=== PATIENT | male | born 1965 | race Caucasian/White ===

== ENCOUNTER 2018-09-28 09:21 | Emergency (ER) | payer BC ==
[2018-09-28] MEDS ORDERED: CLINDAMYCIN HCL 150 MG CAP ONE (10:45)
[2018-09-28] MEDS ORDERED: IBUPROFEN 400 MG TAB ONE (10:45)
--- NOTE | 2018-09-28 11:09 | RAD REPORT ---
EXAM DESCRIPTION: RAD - Hand Left 3 View - 09/28/2018 10:51 am CLINICAL HISTORY: Left hand and thumb nontraumatic pain and swelling, pain and swelling primarily fi rst metacarpal region COMPARISON: None. FINDINGS: No acute fracture changes seen. No dislocation or periosteal reaction. Minimal joint space narrowing at the trapezium first metacarpal articulation. Technologist notation indicates pain is pr imarily around a midshaft region of the first metacarpal. There is no bone or soft tissue finding at this location. There are 5 millimeter and 3 millimeter densities near the scaphoid trapezium joint space. An acute b one avulsion is not suspected. Mineralization from old trauma is favored. This is probably not acutel y clinically significant and is probably a few cm from the patient's site of pain. IMPRESSION: No acute fracture seen. Patient localizes pain and swelling around the first metacarpal region with no acute bone or soft tissue finding seen. Calcification or soft tissue mineralization near the scaphoid trapezium joint space is probably the s equela of old trauma.
--- NOTE | 2018-09-28 11:12 | ER ---
Nurse's Notes [facility] Name: Romeo Hood Age: 52 yrs Sex: Male : 1965 Arrival Date: 09/28/2018 Time: 09:25 Bed 17 Private MD: None, None Diagnosis: Cellulitis of left upper limb Presentation: 09/28 09:55 Presenting complaint: Patient states: "My left hand is swollen and painful. I'm not jl7 sure if its from playing the [email or web address] tennis game or carrying the BBQ pit." Left thumb down to wrist appear swollen, red and warm to touch. Transition of care: patient was not received from another setting of care. Onset of symptoms was September 26, 2018. Risk Assessment: Do you want to hurt yourself or someone else? Patient reports no desire to harm self or others. Initial Sepsis Screen: Does the patient meet any 2 criteria? No. Patient's initial sepsis screen is negative. Does the patient have a suspected source of infection? No. Patient's initial sepsis screen is negative. Care prior to arrival: None. 09:55 Method Of Arrival: Ambulatory 7 09:55 Acuity: RALPH 4 jl7 Triage Assessment: 09:59 General: Appears in no apparent distress. uncomfortable, Behavior is calm, cooperative, jl7 appropriate for age. Pain: Complains of pain in left hand Pain currently is 8 out of 10 on a pain scale. Quality of pain is described as throbbing, Pain began 2-3 days ago. Is continuous. Neuro: Level of Consciousness is awake, alert, obeys commands. Cardiovascular: Patient's skin is warm and dry. Respiratory: Airway is patent Respiratory effort is even, unlabored, Respiratory pattern is regular, symmetrical. Musculoskeletal: Swelling present in lateral aspect of left hand. Historical: - Allergies: 09:59 No Known Allergies; jl7 - Home Meds: 09:59 None [Active]; jl7 - PMHx: 09:59 High Cholesterol; jl7 - PSHx: 09:59 Hernia repair; jl7 - Immunization history:: Adult Immunizations not up to date. - Social history:: Smoking status: Patient uses tobacco products, smokes one-half pack cigarettes per day, Patient uses alcohol, claims drinking about a 6 pack/day. - Ebola Screening: : No symptoms or risks identified at this time. Vital Signs: 09:59 BP 160 / 102; Pulse 84; Resp 16 S; Temp 99.2(O); Pulse Ox 99% on R/A; Weight 70.31 kg; jl7 Height 5 ft. 6 in. (167.64 cm) (R); Pain 8/10; 09:59 Body Mass Index 25.02 (70.31 kg, 167.64 cm) jl7 ED Course: 09:25 Patient arrived in ED. mr 09:26 None, None is Private Physician. mr 09:49 Natalio Santamaria, RN is Primary Nurse. bp 09:59 Triage completed. jl7 09:59 Arm band placed on right wrist. jl7 10:03 Dilia Golden F[facility]C [facility]. kb 10:03 Christiano Esquivel MD is Attending Physician. kb 10:52 XRAY Hand LEFT 3 View In Process Unspecified. EDMS Administered Medications: 10:35 Drug: Clindamycin 300 mg Route: PO; bp 10:35 Drug: Ibuprofen 800 mg Route: PO; bp Outcome: 11:12 Discharge ordered by . kb 11:26 Patient left the ED. iw Signatures: Dispatcher [employer] EDMS Dilia Golden FNP-C FNP-Ckb RiveraSarah mr Natasha Ramirez, RN KVNG iw Dash Dasilva RN RN jl7 Natalio Santamaria, RN RN bp
--- NOTE | 2018-09-28 11:13 | EDPHYS ---
Physician Documentation [facility] Name: Romeo Hood Age: 52 yrs Sex: Male : 1965 Arrival Date: 09/28/2018 Time: 09:25 Bed 17 Private MD: None, None ED Physician Christiano Esquivel HPI: 09/28 11:06 This 52 yrs old Male presents to ER via Ambulatory with complaints of Hand kb Swelling. 11:06 The patient or guardian reports pain, swelling, tenderness. The complaints affect the kb lateral aspect of left hand. Context: The problem was sustained at home, resulted from a repetitive motion, playing tennis of [employer]. Onset: The symptoms/episode began/occurred 2 day(s) ago. Modifying factors: The symptoms are alleviated by nothing, the symptoms are aggravated by nothing. Associated signs and symptoms: The patient has no apparent associated signs or symptoms, Pertinent negatives: cyanosis distally, decreased sensation distally, fever, nausea, numbness distally, tingling distally, vomiting. Severity of symptoms: At their worst the symptoms were moderate, in the emergency department the symptoms are unchanged. The patient has not experienced similar symptoms in the past. The patient has not recently seen a physician. Pt states he played tennis on the [employer] a lot 3 days ago, had some soreness to left hand that radiates up lateral aspect of left wrist the next day. Reports he noticed swelling Wednesday night and it has just progressively gotten worse. States he made an appt with Dr Salmon for tomorrow, but wanted to get it looked at now because of the swelling. Pt has full ROM, neurovascularly intact. Educated on need to return for decreased ROM, tingling/numbness in fingers/hand, increased swelling and redness. . Historical: - Allergies: 09:59 No Known Allergies; jl7 - Home Meds: 09:59 None [Active]; jl7 - PMHx: 09:59 High Cholesterol; jl7 - PSHx: 09:59 Hernia repair; jl7 - Immunization history:: Adult Immunizations not up to date. - Social history:: Smoking status: Patient uses tobacco products, smokes one-half pack cigarettes per day, Patient uses alcohol, claims drinking about a 6 pack/day. - Ebola Screening: : No symptoms or risks identified at this time. ROS: 11:02 Constitutional: Negative for fever, chills, and weight loss, Cardiovascular: Negative kb for chest pain, palpitations, and edema, Respiratory: Negative for shortness of breath, cough, wheezing, and pleuritic chest pain, Abdomen/GI: Negative for abdominal pain, nausea, vomiting, diarrhea, and constipation, Back: Negative for injury and pain, Neuro: Negative for headache, weakness, numbness, tingling, and seizure. 11:02 MS/extremity: Positive for erythema, pain, swelling, tenderness, warmth, of the lateral aspect of left hand. Exam: 11:05 Constitutional: This is a well developed, well nourished patient who is awake, alert, kb and in no acute distress. Head/Face: Normocephalic, atraumatic. Chest/axilla: Normal chest wall appearance and motion. Nontender with no deformity. No lesions are appreciated. Cardiovascular: Regular rate and rhythm with a normal S1 and S2. No gallops, murmurs, or rubs. Normal PMI, no JVD. No pulse deficits. Respiratory: Lungs have equal breath sounds bilaterally, clear to auscultation and percussion. No rales, rhonchi or wheezes noted. No increased work of breathing, no retractions or nasal flaring. Abdomen/GI: Soft, non-tender, with normal bowel sounds. No distension or tympany. No guarding or rebound. No evidence of tenderness throughout. MS/ Extremity: Pulses equal, no cyanosis. Neurovascular intact. Full, normal range of motion. Neuro: Awake and alert, GCS 15, oriented to person, place, time, and situation. Cranial nerves II-XII grossly intact. Motor strength 5/5 in all extremities. Sensory grossly intact. Cerebellar exam normal. Normal gait. 11:05 Skin: cellulitis, that is mild, on the lateral aspect of left hand. Vital Signs: 09:59 BP 160 / 102; Pulse 84; Resp 16 S; Temp 99.2(O); Pulse Ox 99% on R/A; Weight 70.31 kg; jl7 Height 5 ft. 6 in. (167.64 cm) (R); Pain 8/10; 09:59 Body Mass Index 25.02 (70.31 kg, 167.64 cm) jl7 MDM: 10:04 Patient medically screened. kb 11:05 Data reviewed: vital signs, nurses notes. Data interpreted: Pulse oximetry: on room air kb is 99 %. Interpretation: normal. Counseling: I had a detailed discussion with the patient and/or guardian regarding: the historical points, exam findings, and any diagnostic results supporting the discharge/admit diagnosis, radiology results, the need for outpatient follow up, a family practitioner, to return to the emergency department if symptoms worsen or persist or if there are any questions or concerns that arise at home. 09/28 10:03 Order name: XRAY Hand LEFT 3 View; Complete Time: 11:11 bp Administered Medications: 10:35 Drug: Clindamycin 300 mg Route: PO; bp 10:35 Drug: Ibuprofen 800 mg Route: PO; bp Disposition: 16:15 Co-signature as Attending Physician, Christiano Esquivel MD I agree with the assessment and kdr plan of care. Disposition: 09/28/18 11:12 Discharged to Home. Impression: Cellulitis of left upper limb. - Condition is Stable. - Discharge Instructions: Cellulitis, Adult, [id number]. - Prescriptions for Clindamycin HCl 300 mg Oral Capsule - take 1 capsule by ORAL route every 6 hours for 10 days; 40 capsule. Ibuprofen 800 mg Oral Tablet - take 1 tablet by ORAL route every 8 hours As needed take with food; 30 tablet. Tramadol 50 mg Oral Tablet - take 1 tablet by ORAL route every 8 hours as needed; 12 tablet. - Medication Reconciliation Form, Thank You Letter, Antibiotic Education, Prescription Opioid Use, Work release form form. - Follow up: Private Physician; When: 2 - 3 days; Reason: Recheck today's complaints, Continuance of care, Re-evaluation by your physician. Follow up: Emergency Department; When: As needed; Reason: Worsening of condition. Signatures: Dispatcher [employer] EDGA Dilia Golden, HR OPERATIONS ADVISOR-C HR OPERATIONS ADVISOR-Christiano Michel MD MD kdr Natasha Ramirez, RN RN iw Dash Dasilva RN RN jlNatalio Collins RN RN bp Corrections: (The following items were deleted from the chart) 11:12 09/28/2018 11:12 Discharged to Home. Impression: Cellulitis of left upper limb. iw Condition is Stable. Forms are Medication Reconciliation Form, Thank You Letter, Antibiotic Education, Prescription Opioid Use. Follow up: Private Physician; When: 2 - 3 days; Reason: Recheck today's complaints, Continuance of care, Re-evaluation by your physician. Follow up: Emergency Department; When: As needed; Reason: Worsening of condition. kb
== END 2018-09-28 11:26 | disposition home or self-care (01) ==
LOC: ER 09:21
DX: L03.114 Cellulitis of left upper limb (principal); F17.210 Nicotine dependence, cigarettes, uncomplicated
CPT/HCPCS: 99283

== ENCOUNTER 2019-01-12 08:48 | Emergency (ER) | payer BC ==
[2019-01-12 10:00] LABS: Absolute Lymphocytes (CBC) 1.9 K/uL (0.7-4.9); Absolute Monocytes 0.6 K/uL (0.1-1.3); Absolute Neutrophil 5.3 K/uL (1.8-8.0); Basophils % 0.7 % (0-1.3); Hematocrit 42.7 % (39.6-49.0); Lymphocytes % 24.5 % (15.3-44.8); Monocytes % 7.1 % (3.3-12.3); RBC Red Blood Cell Count 4.57 M/uL (4.33-5.43)
[2019-01-12 10:12] LABS: Potassium 4.1 mmol/L (3.5-5.1)
--- NOTE | 2019-01-12 10:53 | RAD REPORT ---
EXAM DESCRIPTION: CTFacial Bones W Con Mpr01/12/2019 10:39 am CLINICAL HISTORY: Facial pain and swelling COMPARISON: None. TECHNIQUE: Computed axial tomography of the face obtained with coronal and sagittal reconstruction. 50 cc Isovue-[address] scans are performed using dose optimization technique as appropriate and may include automated exposure control or mA/KV adjustment according to patient size. FINDINGS: Edema is present within the subcutaneous tissues of the lower forehead/upper nose. An absc ess is not seen. The globes are normal size and density. Intraorbital fat is clear. The parapharyngeal fat is clear. Parotid and submandibular glands do not demonstrate a significant abnormality. Mild mucoperiosteal thickening involves the sinuses. Fluid within the sinuses is not noted. IMPRESSION: Edema within the subcutaneous tissues of the lower forehead and upper nose may indicate a cellulitis. An abscess is not seen .
--- NOTE | 2019-01-12 10:59 | EDPHYS ---
Physician Documentation [facility] Name: Romeo Hood Age: 53 yrs Sex: Male : 1965 Arrival Date: 01/12/2019 Time: 08:53 Bed 6 Private MD: ED Physician Fernando Salguero HPI: 01/12 09:49 This 53 yrs old Male presents to ER via Ambulatory with complaints of Sinus rn Pain. 09:49 The patient or guardian reports. rn 09:49 The patient presents with swelling. Onset: The symptoms/episode began/occurred. rn 09:49 Onset: The symptoms/episode began/occurred yesterday. Modifying factors: The symptoms rn are alleviated by nothing. the symptoms are aggravated by nothing. Severity of symptoms: At their worst the symptoms were mild in the emergency department the symptoms are unchanged. The patient has not experienced similar symptoms in the past. Reports noticed nose swelling over bridge since yesterday, no trauma, no fever, no cough, reports swelling worse this AM, no vision changes.. Historical: - Allergies: 09:05 Clindamycin; hb - Home Meds: 09:05 None [Active]; hb - PMHx: 09:05 High Cholesterol; hb - PSHx: 09:05 Hernia repair; hb - Immunization history:: Adult Immunizations up to date. - Social history:: Smoking status: Patient uses tobacco products, smokes one-half pack cigarettes per day. - Ebola Screening: : No symptoms or risks identified at this time. - Family history:: not pertinent. - Hospitalizations: : No recent hospitalization is reported. ROS: 09:49 Constitutional: Negative for fever, chills, and weight loss, Eyes: Negative for injury, rn pain, redness, and discharge, ENT: Negative for injury, + swelling at bridge of nose Skin: Negative for injury, rash, and discoloration, Neuro: Negative for headache, weakness, numbness, tingling, and seizure. Exam: 09:49 Constitutional: This is a well developed, well nourished patient who is awake, alert, rn and in no acute distress. Head/Face: Normocephalic, atraumatic. ENT: NO oral swelling, + mild swelling of bilateral turbinates, + mild swelling with tenderness along nasal bridge. No erythema or fluctuance. No pain with ocular movement. Skin: Warm, dry with normal turgor. Normal color with no rashes, no lesions, and no evidence of cellulitis. Vital Signs: 09:04 BP 141 / 104; Pulse 87; Resp 16; Temp 98.4; Pulse Ox 100% on R/A; Pain 3/10; hb 09:57 BP 115 / 86; Pulse 80; Resp 16; Pulse Ox 100% on R/A; Pain 3/10; iw MDM: 09:01 Patient medically screened. rn 10:55 Differential diagnosis: sinusitis, cellulitis. Data reviewed: vital signs, nurses rn notes, lab test result(s), radiologic studies, CT scan, and as a result, I will discharge patient. Counseling: I had a detailed discussion with the patient and/or guardian regarding: the historical points, exam findings, and any diagnostic results supporting the discharge/admit diagnosis, lab results, radiology results, the need for outpatient follow up, to return to the emergency department if symptoms worsen or persist or if there are any questions or concerns that arise at home. Special discussion: I discussed with the patient/guardian in detail that at this point there is no indication for admission to the hospital. It is understood, however, that if the symptoms persist or worsen the patient needs to return immediately for re-evaluation. 01/12 09:17 Order name: CBC with Diff; Complete Time: 10:23 rn 01/12 09:17 Order name: Basic Metabolic Panel; Complete Time: 10:23 rn 01/12 09:17 Order name: CT Facial Bones W/ Con \T\ Mpr rn 01/12 09:17 Order name: IV Start; Complete Time: 09:44 rn Administered Medications: No medications were administered Disposition: 01/12/19 10:58 Discharged to Home. Impression: Facial Cellulitis. - Condition is Stable. - Discharge Instructions: Cellulitis, Adult. - Prescriptions for Bactrim DS 800- 160 mg Oral Tablet - take 1 tablet by ORAL route every 12 hours for 10 days; 20 tablet. - Medication Reconciliation Form, Thank You Letter, Antibiotic Education, Prescription Opioid Use form. - Follow up: Private Physician; When: As needed; Reason: Recheck today's complaints, Re-evaluation by your physician. - Problem is new. - Symptoms have improved. Signatures: Dispatcher [employer] EDMS James, Natasha, RN Fernando Torres MD MD rn Baxter, Heather, RN RN Corrections: (The following items were deleted from the chart) 11:12 10:58 01/12/2019 10:58 Discharged to Home. Impression: Facial Cellulitis. Condition is iw Stable. Forms are Medication Reconciliation Form, Thank You Letter, Antibiotic Education, Prescription Opioid Use. Follow up: Private Physician; When: As needed; Reason: Recheck today's complaints, Re-evaluation by your physician. Problem is new. Symptoms have improved. rn
--- NOTE | 2019-01-12 10:59 | ER ---
Nurse's Notes [facility] Name: Romeo Hood Age: 53 yrs Sex: Male : 1965 Arrival Date: 01/12/2019 Time: 08:53 Bed 6 Private MD: Diagnosis: Facial Cellulitis Presentation: 01/12 09:05 Presenting complaint: Facial swelling x 2 days. Denies injury/fever. Transition of hb care: patient was not received from another setting of care. Onset of symptoms was January 11, 2019. Risk Assessment: Do you want to hurt yourself or someone else? Patient reports no desire to harm self or others. Care prior to arrival: None. 09:05 Method Of Arrival: Ambulatory hb 09:05 Acuity: RALPH 3 hb 09:15 Initial Sepsis Screen: Does the patient meet any 2 criteria? No. Patient's initial iw sepsis screen is negative. Does the patient have a suspected source of infection? No. Patient's initial sepsis screen is negative. Triage Assessment: 11:10 Pain: Pain currently is 3 out of 10 on a pain scale. Pain began 2-3 days ago. Also iw complains of no other associated symptoms. Historical: - Allergies: 09:05 Clindamycin; hb - Home Meds: 09:05 None [Active]; hb - PMHx: 09:05 High Cholesterol; hb - PSHx: 09:05 Hernia repair; hb - Immunization history:: Adult Immunizations up to date. - Social history:: Smoking status: Patient uses tobacco products, smokes one-half pack cigarettes per day. - Ebola Screening: : No symptoms or risks identified at this time. - Family history:: not pertinent. - Hospitalizations: : No recent hospitalization is reported. Screenin:54 Abuse screen: Denies threats or abuse. Denies injuries from another. Nutritional iw screening: No deficits noted. Tuberculosis screening: No symptoms or risk factors identified. Fall Risk None identified. Assessment: 09:53 General: Appears in no apparent distress. Behavior is calm, cooperative. Pain: iw Complains of pain in head. Neuro: Level of Consciousness is awake, alert, obeys commands, Moves all extremities. Cardiovascular: Patient's skin is warm and dry. Respiratory: Respiratory effort is even, unlabored, Respiratory pattern is regular, symmetrical. Derm: Skin is intact, is healthy with good turgor. Musculoskeletal: Range of motion: intact in all extremities. Vital Signs: 09:04 BP 141 / 104; Pulse 87; Resp 16; Temp 98.4; Pulse Ox 100% on R/A; Pain 3/10; hb 09:57 BP 115 / 86; Pulse 80; Resp 16; Pulse Ox 100% on R/A; Pain 3/10; iw ED Course: 08:53 Patient arrived in ED. tw3 09:01 Fernando Salguero MD is Attending Physician. rn 09:05 Arm band placed on. hb 09:06 Triage completed. hb 09:10 Patient has correct armband on for positive identification. iw 09:32 Natasha Ramirez RN is Primary Nurse. iw 09:54 Initial lab(s) drawn, by ED staff, sent to lab. Inserted saline lock: 20 gauge in right iw antecubital area, using aseptic technique. Blood collected. 09:59 Radiology exam delayed due to lab results not completed at this time. (BUN/Creatinine). vr 10:39 CT Facial Bones W/ Con \T\ Mpr In Process Unspecified. EDMS 10:44 CT completed. Patient tolerated procedure well. Patient moved back from CT. vr 11:09 No provider procedures requiring assistance completed. IV discontinued, intact, iw bleeding controlled, No redness/swelling at site. Pressure dressing applied. Administered Medications: No medications were administered Outcome: 10:58 Discharge ordered by . rn 11:09 Discharged to home ambulatory. iw 11:09 Condition: good 11:09 Discharge instructions given to patient, Instructed on discharge instructions, follow up and referral plans. medication usage, Demonstrated understanding of instructions, follow-up care, medications, Prescriptions given X 1. 11:12 Patient left the ED. iw Signatures: Dispatcher [employer] EDMS Natasha Ramirez, KVNG CALDERON iw Fernando Salguero MD MD rn Davis, Victoria vr Su Lopez RN RN hb Wade, Tia tw3
== END 2019-01-12 11:12 | disposition home or self-care (01) ==
LOC: ER 08:48
DX: L03.211 Cellulitis of face (principal); E78.00 Pure hypercholesterolemia, unspecified; Z88.1 Allergy status to other antibiotic agents; F17.210 Nicotine dependence, cigarettes, uncomplicated
CPT/HCPCS: 36415; 70487; 76377; 80048; 85025; 99284; Q9967

== ENCOUNTER 2019-08-02 12:08 | Emergency (ER) | payer BC ==
[2019-08-02] MEDS ORDERED: LIDOCAINE 1% MPF 5 ML VIAL ONE (13:19)
[2019-08-02] MEDS ORDERED: TETANUS & DIPHTHERIA TOX,ADULT 0.5 ML VIAL ONE (13:20)
--- NOTE | 2019-08-02 13:38 | RAD REPORT ---
EXAM DESCRIPTION: RAD - Hand Right 3 View - 08/02/2019 1:29 pm CLINICAL HISTORY: PAIN COMPARISON: No comparisons FINDINGS: Soft tissue swelling affects the first finger. No fracture or dislocation seen.
--- NOTE | 2019-08-02 14:02 | EDPHYS ---
Physician Documentation [facility] Name: Romeo Hood Age: 53 yrs Sex: Male : 1965 Arrival Date: 08/02/2019 Time: 12:33 Bed 10 Private MD: ED Physician Delano Stacy HPI: 08/02 14:02 This 53 yrs old Male presents to ER via Ambulatory with complaints of Thumb jr8 Injury. 14:02 Onset: The symptoms/episode began/occurred just prior to arrival. jr8 14:02 The patient has a laceration occurred at work, and there are no complicating factors. jr8 The laceration(s) is(are) located on the palmar aspect of proximal phalanx of right thumb. Pt reports accidentally hitting hand with hammer while working on car. Historical: - Allergies: 12:35 Clindamycin; aa5 - PMHx: 12:35 High Cholesterol; aa5 - PSHx: 12:35 Hernia repair; aa5 - Immunization history:: Last tetanus immunization: unknown. - Social history:: Smoking status: Patient uses tobacco products, smokes one-half pack cigarettes per day. - Ebola Screening: : No symptoms or risks identified at this time. ROS: 14:07 Constitutional: Negative for fever, chills, and weight loss, Cardiovascular: Negative jr8 for chest pain, palpitations, and edema, Respiratory: Negative for shortness of breath, cough, wheezing, and pleuritic chest pain, Abdomen/GI: Negative for abdominal pain, nausea, vomiting, diarrhea, and constipation, Back: Negative for injury and pain, MS/Extremity: Negative for injury and deformity. 14:07 Skin: Positive for laceration(s), of the palmar aspect of proximal phalanx of right thumb. Exam: 14:05 Head/Face: Normocephalic, atraumatic. Eyes: Pupils equal round and reactive to light, jr8 extra-ocular motions intact. Lids and lashes normal. Conjunctiva and sclera are non-icteric and not injected. Cornea within normal limits. Periorbital areas with no swelling, redness, or edema. ENT: Nares patent. No nasal discharge, no septal abnormalities noted. Tympanic membranes are normal and external auditory canals are clear. Oropharynx with no redness, swelling, or masses, exudates, or evidence of obstruction, uvula midline. Mucous membranes moist. Neck: Trachea midline, no thyromegaly or masses palpated, and no cervical lymphadenopathy. Supple, full range of motion without nuchal rigidity, or vertebral point tenderness. No Meningismus. Chest/axilla: Normal chest wall appearance and motion. Nontender with no deformity. No lesions are appreciated. Cardiovascular: Regular rate and rhythm with a normal S1 and S2. No gallops, murmurs, or rubs. Normal PMI, no JVD. No pulse deficits. Respiratory: Lungs have equal breath sounds bilaterally, clear to auscultation and percussion. No rales, rhonchi or wheezes noted. No increased work of breathing, no retractions or nasal flaring. Abdomen/GI: Soft, non-tender, with normal bowel sounds. No distension or tympany. No guarding or rebound. No evidence of tenderness throughout. Back: No spinal tenderness. No costovertebral tenderness. Full range of motion. MS/ Extremity: Pulses equal, no cyanosis. Neurovascular intact. Full, normal range of motion. Neuro: Awake and alert, GCS 15, oriented to person, place, time, and situation. Cranial nerves II-XII grossly intact. Motor strength 5/5 in all extremities. Sensory grossly intact. Cerebellar exam normal. Normal gait. 14:05 Skin: injury, laceration(s), the wound is approximately 2 cm(s), with a depth of .5 cm(s), of the palmar aspect of proximal phalanx of right thumb. Vital Signs: 12:36 BP 140 / 85; Pulse 78; Resp 16 S; Temp 98.1(TE); Pulse Ox 100% on R/A; Weight 70.31 kg aa5 (R); Height 5 ft. 6 in. (167.64 cm) (R); Pain 4/10; 12:36 Body Mass Index 25.02 (70.31 kg, 167.64 cm) aa5 Laceration: 13:59 Wound Repair of 2cm ( 0.8in ) subcutaneous laceration to palmar aspect of proximal jr8 phalanx of right thumb. Distal neuro/vascular/tendon intact. Anesthesia: Digital block administered with 2 mls of 1% lidocaine. Wound prep: Moderate cleansing, Wound irrigation. Skin closed with 4 5-0 Prolene using simple sutures and sterile technique. MDM: 12:49 Patient medically screened. jr8 13:59 Data reviewed: vital signs, nurses notes, radiologic studies, and as a result, I will jr8 discharge patient. Counseling: I had a detailed discussion with the patient and/or guardian regarding: the historical points, exam findings, and any diagnostic results supporting the discharge/admit diagnosis. 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 Exp: aa5 02/14/2021. Lot #: [id number]. } Route: IM; Site: right deltoid; 13:50 Follow up: Response: No adverse reaction aa5 13:50 Drug: Lidocaine (1 %) 5 ml {Note: administered to right thumb by PA.} Volume: 5 ml; aa5 Route: Infiltration; 14:08 Follow up: Response: No adverse reaction aa5 Disposition: 08/03 07:25 Co-signature as Attending Physician, Delano Stacy MD I agree with the assessment and brittany plan of care. Disposition: 08/02/19 14:01 Discharged to Home. Impression: Laceration with foreign body of finger without damage to nail. - Condition is Fair. - Discharge Instructions: Laceration Care, Adult, Sutured Wound Care. - Medication Reconciliation Form, Thank You Letter form. - Follow up: Private Physician; When: 2 - 3 days; Reason: Recheck today's complaints, Re-evaluation by your physician. - Problem is new. - Symptoms have improved. - Notes: Have stictches removed in seven to ten days. Watch for signs of infection. Signatures: Dispatcher [employer] Delano Moraes MD MD cha Calderon, Audri, RN RN aa5 Jakob Hernandez PA PA jr8 Corrections: (The following items were deleted from the chart) 08/02 14:05 14:02 The laceration(s) is(are) located on the palmar aspect of proximal phalanx of jr8 right thumb, jr8 14:05 14:02 Pt reports accidental . jr8 jr8 14:11 14:01 08/02/2019 14:01 Discharged to Home. Impression: Laceration with foreign body of aa5 finger without damage to nail. Condition is Fair. Forms are Medication Reconciliation Form, Thank You Letter, Antibiotic Education, Prescription Opioid Use. Follow up: Private Physician; When: 2 - 3 days; Reason: Recheck today's complaints, Re-evaluation by your physician. Problem is new. Symptoms have improved. jr8
--- NOTE | 2019-08-02 14:02 | ER ---
Nurse's Notes [facility] Name: Romeo Hood Age: 53 yrs Sex: Male : 1965 Arrival Date: 08/02/2019 Time: 12:33 Bed 10 Private MD: Diagnosis: Laceration with foreign body of finger without damage to nail Presentation: 08/02 12:33 Presenting complaint: Patient states: "I hit my hand with a hammer about 45 minutes ago aa5 and it busted my right thumb open". 12:33 Transition of care: patient was not received from another setting of care. Onset of aa5 symptoms was July 2019. Risk Assessment: Do you want to hurt yourself or someone else? Patient reports no desire to harm self or others. Initial Sepsis Screen: Does the patient meet any 2 criteria? No. Patient's initial sepsis screen is negative. Does the patient have a suspected source of infection? No. Patient's initial sepsis screen is negative. Care prior to arrival: None. 12:33 Acuity: RALPH 4 aa5 12:33 Method Of Arrival: Ambulatory aa5 Historical: - Allergies: 12:35 Clindamycin; aa5 - PMHx: 12:35 High Cholesterol; aa5 - PSHx: 12:35 Hernia repair; aa5 - Immunization history:: Last tetanus immunization: unknown. - Social history:: Smoking status: Patient uses tobacco products, smokes one-half pack cigarettes per day. - Ebola Screening: : No symptoms or risks identified at this time. Screenin:35 Abuse screen: Denies threats or abuse. Nutritional screening: No deficits noted. aa5 Tuberculosis screening: No symptoms or risk factors identified. Fall Risk None identified. Assessment: 12:36 General: Appears comfortable, Behavior is calm, cooperative. Pain: Complains of pain in aa5 right thumb Pain does not radiate. Quality of pain is described as aching, throbbing. Neuro: Level of Consciousness is awake, alert, obeys commands, Oriented to person, place, time, situation. Cardiovascular: Capillary refill < 3 seconds is brisk in bilateral fingers Patient's skin is warm and dry. Respiratory: Airway is patent Respiratory effort is even, unlabored, Respiratory pattern is regular, symmetrical. GI: No signs and/or symptoms were reported involving the gastrointestinal system. : No signs and/or symptoms were reported regarding the genitourinary system. EENT: No signs and/or symptoms were reported regarding the EENT system. Derm: Skin is pink, warm \\T\\ dry. Musculoskeletal: Range of motion: intact in all extremities. Injury Description: Laceration sustained to right thumb is Approximately 1 in long. No active bleeding noted at this time. 13:22 Reassessment: Patient is alert, oriented x 3, equal unlabored respirations, skin aa5 warm/dry/pink. X-ray completed by x-ray tech . 14:08 Reassessment: Patient is alert, oriented x 3, equal unlabored respirations, skin aa5 warm/dry/pink. Patient states feeling better. Vital Signs: 12:36 BP 140 / 85; Pulse 78; Resp 16 S; Temp 98.1(TE); Pulse Ox 100% on R/A; Weight 70.31 kg aa5 (R); Height 5 ft. 6 in. (167.64 cm) (R); Pain 4/10; 12:36 Body Mass Index 25.02 (70.31 kg, 167.64 cm) aa5 ED Course: 12:33 Patient arrived in ED. aa5 12:33 Arm band placed on. aa5 12:33 Patient has correct armband on for positive identification. aa5 12:36 Triage completed. aa5 12:49 Jakob Hernandez PA is PHCP. jr8 12:49 Delano Stacy MD is Attending Physician. jr8 13:18 Ilda Durand, RN is Primary Nurse. aa5 13:29 Hand Right 3 View XRAY In Process Unspecified. EDMS 13:53 Assist provider with laceration repair on right thumb using sutures. Set up tray. aa5 Performed by Jakob QUINTERO Dressed with Neosporin, gauze and tape Patient tolerated well. 14:11 Patient did not have IV access during this emergency room visit. 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 Exp: aa5 02/14/2021. Lot #: [id number]. } Route: IM; Site: right deltoid; 13:50 Follow up: Response: No adverse reaction aa5 13:50 Drug: Lidocaine (1 %) 5 ml {Note: administered to right thumb by PA.} Volume: 5 ml; aa5 Route: Infiltration; 14:08 Follow up: Response: No adverse reaction aa5 Outcome: 14:01 Discharge ordered by MD. hurd 14:08 Discharged to home ambulatory. aa5 14:08 Condition: stable 14:08 Discharge instructions given to patient, Instructed on discharge instructions, follow up and referral plans. Demonstrated understanding of instructions, follow-up care. 14:11 Patient left the ED. aa5 Signatures: Dispatcher [employer] EDNV Ilda Durand RN RN aa5 Jakob Hernandez PA PA jr8 Corrections: (The following items were deleted from the chart) 14:21 12:34 Arm band placed on aa5 aa5 15:14 13:26 Reassessment: Patient is alert, oriented x 3, equal unlabored respirations, skin aa5 warm/dry/pink. X-ray completed by x-ray tech . aa5
[2019-08-02 14:17] VITALS: BP 140/85; TEMP 98.1; O2SAT 100
== END 2019-08-02 14:11 | disposition home or self-care (01) ==
LOC: ER 12:08
PROC: 0JQJ0ZZ Repair Right Hand Subcutaneous Tissue and Fascia, Open Approach (ICD-10-PCS; principal; 2019-08-02)
DX: S61.021A Laceration with foreign body of right thumb without damage to nail, initial encounter (principal); F17.210 Nicotine dependence, cigarettes, uncomplicated; Z88.3 Allergy status to other anti-infective agents; W22.8XXA Striking against or struck by other objects, initial encounter; Y93.89 Activity, other specified; Y92.9 Unspecified place or not applicable
CPT/HCPCS: 90471; 90714; 99283

== ENCOUNTER 2019-08-14 14:56 | Emergency (ER) | payer BC ==
--- NOTE | 2019-08-14 15:28 | ER ---
Nurse's Notes [facility] Name: Romeo Hood Age: 53 yrs Sex: Male : 1965 Arrival Date: 08/14/2019 Time: 14:57 Bed 12 Private MD: Diagnosis: Encounter for removal of sutures Presentation: 08/14 14:59 Presenting complaint: Patient states: Sutures removal on right thumb. Sutures have been rb1 in for 12 days. Denies fever and signs of infection. Transition of care: patient was not received from another setting of care. Onset of symptoms was August 03, 2019. Risk Assessment: Do you want to hurt yourself or someone else? Patient reports no desire to harm self or others. Initial Sepsis Screen: Does the patient meet any 2 criteria? No. Patient's initial sepsis screen is negative. Does the patient have a suspected source of infection? No. Patient's initial sepsis screen is negative. Care prior to arrival: None. 14:59 Method Of Arrival: Ambulatory rb1 14:59 Acuity: RALPH 4 rb1 Historical: - Allergies: 15:01 Clindamycin; rb1 - Home Meds: 15:01 None [Active]; rb1 - PMHx: 15:01 High Cholesterol; rb1 - PSHx: 15:01 Hernia repair; rb1 - Immunization history:: Adult Immunizations up to date. - Social history:: Smoking status: Patient uses tobacco products, smokes one-half pack cigarettes per day. - Ebola Screening: : Patient negative for fever greater than or equal to 101.5 degrees Fahrenheit, and additional compatible Ebola Virus Disease symptoms. Screenin:03 Abuse screen: Denies threats or abuse. Nutritional screening: No deficits noted. rb1 Tuberculosis screening: No symptoms or risk factors identified. Fall Risk None identified. Assessment: 15:03 General: Appears in no apparent distress. comfortable, Behavior is calm, cooperative, rb1 Denies fever. Pain: Denies pain. Neuro: Level of Consciousness is awake, alert, obeys commands, Oriented to person, place, time, situation. Cardiovascular: Capillary refill < 3 seconds is brisk in bilateral fingers. Respiratory: Airway is patent Respiratory effort is even, unlabored, Respiratory pattern is regular, symmetrical. GI: No signs and/or symptoms were reported involving the gastrointestinal system. : No signs and/or symptoms were reported regarding the genitourinary system. Derm: Reports Needing sutures removed in his right lthumb. Musculoskeletal: Range of motion: intact in all extremities. Vital Signs: 15:01 BP 136 / 82; Pulse 84; Resp 16; Temp 98.4(O); Pulse Ox 98% on R/A; Weight 70.31 kg (R); rb1 Height 5 ft. 4 in. (162.56 cm) (R); Pain 0/10; 15:01 Body Mass Index 26.61 (70.31 kg, 162.56 cm) rb1 ED Course: 14:57 Patient arrived in ED. rg4 15:00 Triage completed. rb1 15:01 Arm band placed on left wrist. Patient placed in an exam room. rb1 15:03 Dilia Golden [facility]-C [facility]. kb 15:03 Fernando Salguero MD is Attending Physician. kb 15:03 Yevgeniy Ortega NP is PHCP. pm1 15:03 Patient has correct armband on for positive identification. Bed in low position. Call rb1 light in reach. Side rails up X 1. Pulse ox on. NIBP on. 15:19 No provider procedures requiring assistance completed. Patient did not have IV access rb1 during this emergency room visit. Administered Medications: No medications were administered Outcome: 15:27 Discharge ordered by MD. kb 15:28 Discharged to home ambulatory. rb1 15:28 Condition: stable 15:28 Discharge instructions given to patient, Instructed on discharge instructions, follow up and referral plans. Demonstrated understanding of instructions, follow-up care. 15:28 Patient left the ED. rb1 Signatures: Dilia Golden FNP-C FNP-Ckb Barber, Rebecca, RN RN rb1 Yevgeniy Ortega NP FACULTY I ON CALL MEDICAL ASSISTANT pm1 Alva Brothers rg4
--- NOTE | 2019-08-14 15:28 | EDPHYS ---
Physician Documentation [facility] Name: Romeo Hood Age: 53 yrs Sex: Male : 1965 Arrival Date: 08/14/2019 Time: 14:57 Bed 12 Private MD: ED Physician Fernando Salguero HPI: 08/14 15:34 This 53 yrs old Male presents to ER via Ambulatory with complaints of Suture kb Removal. 15:34 The patient has sutures on the palmar aspect of distal phalanx of right thumb. Previous kb treatment: The patient was initially treated 12 day(s) ago, the care was rendered at [facility]. Sutures/sanket progress: The patient has no c/o's. The wound is well-healing with no redness, swelling, discharge, or dehiscence reported. The patient has not experienced similar symptoms in the past. The patient has not recently seen a physician. Historical: - Allergies: 15:01 Clindamycin; rb1 - Home Meds: 15:01 None [Active]; rb1 - PMHx: 15:01 High Cholesterol; rb1 - PSHx: 15:01 Hernia repair; rb1 - Immunization history:: Adult Immunizations up to date. - Social history:: Smoking status: Patient uses tobacco products, smokes one-half pack cigarettes per day. - Ebola Screening: : Patient negative for fever greater than or equal to 101.5 degrees Fahrenheit, and additional compatible Ebola Virus Disease symptoms. ROS: 15:32 Constitutional: Negative for fever, chills, and weight loss, Neck: Negative for injury, kb pain, and swelling, Cardiovascular: Negative for chest pain, palpitations, and edema, Respiratory: Negative for shortness of breath, cough, wheezing, and pleuritic chest pain, Abdomen/GI: Negative for abdominal pain, nausea, vomiting, diarrhea, and constipation, Back: Negative for injury and pain, MS/Extremity: Negative for injury and deformity, Neuro: Negative for headache, weakness, numbness, tingling, and seizure. 15:32 Skin: Positive for of the palmar aspect of distal phalanx of right thumb, sutures in place. Exam: 15:32 Constitutional: This is a well developed, well nourished patient who is awake, alert, kb and in no acute distress. Head/Face: Normocephalic, atraumatic. ENT: Nares patent. No nasal discharge, no septal abnormalities noted. Tympanic membranes are normal and external auditory canals are clear. Oropharynx with no redness, swelling, or masses, exudates, or evidence of obstruction, uvula midline. Mucous membranes moist. Neck: Trachea midline, no thyromegaly or masses palpated, and no cervical lymphadenopathy. Supple, full range of motion without nuchal rigidity, or vertebral point tenderness. No Meningismus. Chest/axilla: Normal chest wall appearance and motion. Nontender with no deformity. No lesions are appreciated. Cardiovascular: Regular rate and rhythm with a normal S1 and S2. No gallops, murmurs, or rubs. Normal PMI, no JVD. No pulse deficits. Respiratory: Lungs have equal breath sounds bilaterally, clear to auscultation and percussion. No rales, rhonchi or wheezes noted. No increased work of breathing, no retractions or nasal flaring. Abdomen/GI: Soft, non-tender, with normal bowel sounds. No distension or tympany. No guarding or rebound. No evidence of tenderness throughout. MS/ Extremity: Pulses equal, no cyanosis. Neurovascular intact. Full, normal range of motion. Neuro: Awake and alert, GCS 15, oriented to person, place, time, and situation. Cranial nerves II-XII grossly intact. Motor strength 5/5 in all extremities. Sensory grossly intact. Cerebellar exam normal. Normal gait. 15:32 Skin: Wound recheck: Suture laceration closure: the wound is healing well, the edges are well approximated, no evidence of dehiscence, no drainage, no erythema, no swelling. Vital Signs: 15:01 BP 136 / 82; Pulse 84; Resp 16; Temp 98.4(O); Pulse Ox 98% on R/A; Weight 70.31 kg (R); rb1 Height 5 ft. 4 in. (162.56 cm) (R); Pain 0/10; 15:01 Body Mass Index 26.61 (70.31 kg, 162.56 cm) rb1 Procedures: 15:34 Suture/Staple removal: Removed 4 sutures, from palmar aspect of distal phalanx of right kb thumb, site appears well healed, Patient tolerated well. MDM: 15:03 Patient medically screened. 15:32 Data reviewed: vital signs, nurses notes. Data interpreted: Pulse oximetry: on room air kb is 98 %. Interpretation: normal. Counseling: I had a detailed discussion with the patient and/or guardian regarding: the historical points, exam findings, and any diagnostic results supporting the discharge/admit diagnosis, the need for outpatient follow up, a family practitioner, to return to the emergency department if symptoms worsen or persist or if there are any questions or concerns that arise at home. Administered Medications: No medications were administered Disposition: 15:58 Co-signature as Attending Physician, Fernando Salguero MD. rn Disposition: 08/14/19 15:27 Discharged to Home. Impression: Encounter for removal of sutures. - Condition is Stable. - Discharge Instructions: Suture Removal, Care After. - Medication Reconciliation Form, Thank You Letter, Antibiotic Education, Prescription Opioid Use form. - Follow up: Private Physician; When: 2 - 3 days; Reason: Recheck today's complaints, Continuance of care, Re-evaluation by your physician. Follow up: Emergency Department; When: As needed; Reason: Worsening of condition. Signatures: Dilia Golden, LATEX THREAD MACHINE OPERATOR-C LATEX THREAD MACHINE OPERATOR-Ckb Fernando Salguero MD MD rn Barber, Rebecca, RN RN rb1 Corrections: (The following items were deleted from the chart) 15:28 15:27 08/14/2019 15:27 Discharged to Home. Impression: Encounter for removal of rb1 sutures. Condition is Stable. Forms are Medication Reconciliation Form, Thank You Letter, Antibiotic Education, Prescription Opioid Use. Follow up: Private Physician; When: 2 - 3 days; Reason: Recheck today's complaints, Continuance of care, Re-evaluation by your physician. Follow up: Emergency Department; When: As needed; Reason: Worsening of condition. kb
[2019-08-14 15:45] VITALS: BP 136/82; TEMP 98.4; O2SAT 98
== END 2019-08-14 15:28 | disposition home or self-care (01) ==
LOC: ER 14:56
DX: Z48.02 Encounter for removal of sutures (principal); Z88.3 Allergy status to other anti-infective agents; F17.210 Nicotine dependence, cigarettes, uncomplicated
CPT/HCPCS: 99283

== ENCOUNTER 2023-08-15 08:53 | Emergency (ER) | payer BC, OTHER ==
--- OUTSIDE RECORDS SUMMARY | 2023-08-15 08:56 | XMS REPORT | Continuity of Care Document ---
:1965 Author Organization [facility] t Address [address] [place] [address] [address] [place] [address] Care Team Providers Name Role Phone Only, Adc Test Attending Clinician Unavailable Davin Newby MD Attending Clinician DAVIN NEWBY Attending Clinician Unavailable Doctor Unassigned, [place] Attending Clinician Unavailable Payers Payer Name Policy Type Policy Number Effective Date Expiration Date S ource Problems This patient has no known problems. Allergies, Adverse Reactions, Alerts Allergy Allergy Status Severity Reaction(s) Onset Inactive Treating Comm ents Source Name Type Date Date Clinician NO KNOWN Drug Active [facility] ALLERGIE Class ity [facility] Social History Social Habit Start Date Stop Date Quantity Comments Source Exposure to Yes [facility] SARS-CoV-2 (event) Medica l Branch Sex Assigned At [birth year] [facility] 00:00:00 00:00:00 [facility] Smoking Status Start Date Stop Date Source Unknown if ever smoked [facility] Medications This patient has no known medications. Procedures Procedure Date / Time Performed Performing Clinician Sour e ASSIGNMENT OF BENEFITS 2021-02-19 16:58:25 Doctor Unassigned, No [facility] Encounters Start End Encounter Admission Attending Care Care Encounter Source Date/Time Date/Time Type Type Clinicians Facility Department ID 2021-02-19 2021-02-19 Laboratory Only, Adc Test [facility] [id number] [facility] 12:03:31 12:18:31 Only Davin Newby [id number] [facility] [id number] [facility] [phone] [place] [id number] Branch 2021-02-19 2021-02-19 Outpatient R ODIN [facility] [id number] Univers 12:00:00 12:00:00 DAVIN itchilo of [facility] 2021-02-19 2021-02-19 Orders Doctor KARL [id number] Univers 00:00:00 00:00:00 Only Unassigned, WALI [id number] ity of [place] [facility] [id number] Rajesh as [phone] [facility] 009 Branch Results This patient has no known results.
[2023-08-15] MEDS ORDERED: HYDROCODONE/CHLORPHEN 5 ML/OSYR ONE (09:25)
[2023-08-15 10:00] LABS: SARS-COV-2 RT PCR NEGATIVE (NEGATIVE)
--- NOTE | 2023-08-15 10:02 | ER ---
Nurse's Notes [facility] Name: Romeo Hood Age: 57 yrs Sex: Male : 1965 Arrival Date: 08/15/2023 Time: 08:53 Bed 17 Private MD: Diagnosis: Influenza due to identified novel influenza A virus-B Presentation: 08/15 09:06 Chief complaint: Patient states: Cough, RAMIREZ, body aches, trunk pain with cough since ll1 . Feels feverish. Coronavirus screen: Vaccine status: Patient reports being unvaccinated. Client denies travel out of the [place] in the last 14 days. congestion, cough unrelated to allergies, difficulty breathing, fatigue, fever, headache, Client presents with at least one sign or symptom that may indicate coronavirus-19. Standard/surgical mask placed on the client. Ebola Screen: Patient denies travel to an Ebola-affected area in the 21 days before illness onset. Initial Sepsis Screen: Does the patient meet any 2 criteria? No. Patient's initial sepsis screen is negative. Does the patient have a suspected source of infection? No. Patient's initial sepsis screen is negative. Risk Assessment: Do you want to hurt yourself or someone else? Patient reports no desire to harm self or others. Onset of symptoms was August 12, 2023. 09:06 Method Of Arrival: Ambulatory ll1 09:06 Acuity: RALPH 3 ll1 Historical: - Allergies: 09:06 Clindamycin; ll1 - PMHx: 09:06 High Cholesterol; ll1 - PSHx: 09:06 hernia repair (High Cholesterol); ll1 - Immunization history:: Adult Immunizations up to date. - Social history:: Smoking status: Patient/guardian denies using tobacco, Stopped _ months ago 5. Screenin:17 [facility] ED Fall Risk Assessment (Adult) History of falling in the last 3 months, tm6 including since admission No falls in past 3 months (0 pts). Abuse screen: Denies threats or abuse. Denies injuries from another. Nutritional screening: No deficits noted. Tuberculosis screening: No symptoms or risk factors identified. Assessment: 09:17 General: Appears in no apparent distress. Behavior is calm, cooperative. General: tm6 patient reports full body aches. Pain: Quality of pain is described as aching, Pain began 2-3 days ago. Neuro: Level of Consciousness is awake, alert, obeys commands, Oriented to person, place, time, situation. Cardiovascular: Capillary refill < 3 seconds Patient's skin is warm and dry. Respiratory: Airway is patent Respiratory effort is even, unlabored, Respiratory pattern is regular, symmetrical. Respiratory: Reports cough that is non-productive. GI: Abdomen is flat, non-distended. : No signs and/or symptoms were reported regarding the genitourinary system. EENT: No signs and/or symptoms were reported regarding the EENT system. Derm: No signs and/or symptoms reported regarding the dermatologic system. Musculoskeletal: No signs and/or symptoms reported regarding the musculoskeletal system. Vital Signs: 09:06 BP 118 / 81; Pulse 77; Resp 17; Temp 98.1; Pulse Ox 100% ; Weight 72.57 kg; Height 5 ll1 ft. 4 in. ; Pain 8/10; 09:17 BP 108 / 77; Pulse 80; Resp 17; Temp 98.4(TE); Pulse Ox 97% on R/A; Pain 0/10; tm6 09:06 Body Mass Index 27.46 (72.57 kg, 162.56 cm) ll1 09:06 Pain Scale: Adult ll1 09:17 Pain Scale: Adult tm6 ED Course: 08:57 Patient arrived in ED. mg5 08:58 [facility]C [facility] kb 08:58 Fazal Tao MD is Attending Physician. kb 09:00 Selena Guidry RN is Primary Nurse. tm6 09:06 Arm band placed on Patient placed in an exam room, on a stretcher. ll1 09:08 Triage completed. ll1 09:15 Strep Sent. tm6 09:15 COVID-19/FLU A+B/RSV Sent. tm6 09:17 Patient has correct armband on for positive identification. Bed in low position. Call tm6 light in reach. Side rails up X 1. Provided Education on: testing for flu/covid/strep. Client placed on continuous cardiac and pulse oximetry monitoring. NIBP monitoring applied. 09:17 No provider procedures requiring assistance completed. tm6 09:54 Chest Single View XRAY In Process Unspecified. EDMS 10:10 Patient did not have IV access during this emergency room visit. tm6 Administered Medications: :15 Drug: Tussionex Pennkinetic ER PO Suspension 5 ml PO once Route: PO; tm6 Medication: 09:17 VIS not applicable for this client. tm6 Outcome: 10:02 Discharge ordered by . karen 10:09 Discharged to home ambulatory, with family, tm6 10:09 Condition: stable 10:09 Discharge instructions given to patient, family, Instructed on discharge instructions, follow up and referral plans. medication usage, Demonstrated understanding of instructions, follow-up care, medications, Prescriptions given X 1, 10:10 Patient left the ED. tm6 Signatures: Dispatcher [employer] EDMS Dilia Golden, INTEGRATED PEST MANAGEMENT TECHNICIAN-C ALEXANDRA-Torri Cabral RN RN ll1 Raven Mosquera mg5 Selena Guidry RN RN tm6
--- NOTE | 2023-08-15 10:02 | EDPHYS ---
Physician Documentation [facility] Name: Romeo Hood Age: 57 yrs Sex: Male : 1965 Arrival Date: 08/15/2023 Time: 08:53 Bed 17 Private MD: ED Physician Fazal Tao HPI: 08/15 10:08 This 57 yrs old Male presents to ER via Ambulatory with complaints of Oxygen level 92%. kb 10:08 Patient is a 57-year-old male who presents for cough, congestion, malaise, headache, kb sore throat that started 4 days ago. Patient was recently exposed to flu B. States he was seen at urgent care on Wednesday and all tests were negative at that time.. Historical: - Allergies: 09:06 Clindamycin; ll1 - PMHx: 09:06 High Cholesterol; ll1 - PSHx: 09:06 hernia repair (High Cholesterol); ll1 - Immunization history:: Adult Immunizations up to date. - Social history:: Smoking status: Patient/guardian denies using tobacco, Stopped _ months ago 5. ROS: 10:06 Abdomen/GI: Negative for abdominal pain, nausea, vomiting, diarrhea, and constipation, kb 10:06 Constitutional: Positive for fatigue, malaise, 10:06 ENT: Positive for rhinorrhea, sinus congestion, sore throat, 10:06 Respiratory: Positive for cough, 10:06 Neuro: Positive for headache, 10:06 All other systems are negative, Exam: 10:06 Constitutional: This is a well developed, well nourished patient who is awake, alert, kb and in no acute distress. Head/Face: Normocephalic, atraumatic. ENT: Moist Mucous membranes Cardiovascular: Regular rate Respiratory: Respirations even and unlabored. No increased work of breathing. Talking in full sentences Abdomen/GI: Soft, non-tender. No distention Skin: Warm, dry with normal turgor. Normal color. MS/ Extremity: Pulses equal, no cyanosis. Neurovascular intact. Full, normal range of motion. Neuro: Awake and alert, GCS 15, oriented to person, place, time, and situation. Moves all extremities. Normal gait. Vital Signs: 09:06 BP 118 / 81; Pulse 77; Resp 17; Temp 98.1; Pulse Ox 100% ; Weight 72.57 kg; Height 5 ll1 ft. 4 in. ; Pain 8/10; 09:17 BP 108 / 77; Pulse 80; Resp 17; Temp 98.4(TE); Pulse Ox 97% on R/A; Pain 0/10; tm6 09:06 Body Mass Index 27.46 (72.57 kg, 162.56 cm) ll1 09:06 Pain Scale: Adult ll1 09:17 Pain Scale: Adult tm6 MDM: 09:03 Patient medically screened. kb 10:07 Differential diagnosis: COVID, flu, RSV, strep, URI, pneumonia. Data reviewed: vital kb signs, nurses notes. Independent interpretation of the following test(s) in the Emergency Department X-Ray: My interpretation is No consolidation on chest x-ray. Counseling: I had a detailed discussion with the patient and/or guardian regarding the historical points, exam findings, and any diagnostic results supporting the discharge/admit diagnosis, lab results, radiology results, the need for outpatient follow up, a family practitioner, to return to the emergency department if symptoms worsen or persist or if there are any questions or concerns that arise at home. 08/15 09:03 Order name: COVID-19/FLU A+B/RSV; Complete Time: 10:01 kb 08/15 09:03 Order name: Strep 08/15 09:46 Order name: Throat Culture EDWV 08/15 09:03 Order name: Chest Single View XRAY kb Administered Medications: 09:15 Drug: Tussionex Pennkinetic ER PO Suspension 5 ml PO once Route: PO; tm6 Disposition Summary: 08/15/23 10:02 Discharge Ordered Notes: Location: Home kb Condition: Stable kb Diagnosis - Influenza due to identified novel influenza A virus - B kb Followup: kb - With: Emergency Department - When: As needed - Reason: Worsening of condition Followup: kb - With: Private Physician - When: 2 - 3 days - Reason: Recheck today's complaints, Continuance of care, Re-evaluation by your physician Discharge Instructions: - Discharge Summary Sheet kb - Influenza, Adult, [id number] kb Forms: - Medication Reconciliation Form kb - Thank You Letter kb - Antibiotic Education kb - Prescription Opioid Use kb - Patient Portal Instructions kb - Leadership Thank You Letter kb Prescriptions: - Tessalon Perles 100 mg Oral Capsule - take 1 capsule ORAL route every 8 hours As needed; 15 capsule; Refills: 0, kb Product Selection Permitted Addendum: 08/17/2023 07:25 I was immediately available for consultation during this patient's visit. I did not e c2 personally see the patient or guide the patient's care.. Signatures: Dispatcher [employer] Dilia Chen, Torri Stuart RN RN ll1 Fazal Tao MD MD 2 Selena Guidry RN RN tm6 Corrections: (The following items were deleted from the chart) 08/15 09:06 09:04 Group A Streptococcus Rapid [id number] ordered. TON CAMILO
--- NOTE | 2023-08-15 10:20 | RAD REPORT ---
EXAM DESCRIPTION: Yobany Single View08/15/2023 9:52 am CLINICAL HISTORY: Cough COMPARISON: none FINDINGS: The lungs appear clear of acute infiltrate. The heart is normal size IMPRESSION: No acute abnormalities displayed
[2023-08-15 10:22] VITALS: BP 108/77; TEMP 98.4; O2SAT 97
== END 2023-08-15 10:10 | disposition home or self-care (01) ==
LOC: ER 08:53
DX: J10.1 Influenza due to other identified influenza virus with other respiratory manifestations (principal); Z11.52 Encounter for screening for COVID-19; Z88.3 Allergy status to other anti-infective agents
CPT/HCPCS: 87070; 87081; 0241U; 71045; 99284